=== PATIENT | female | born 1965 | race Caucasian/White ===

== ENCOUNTER → 2019-07-19 07:44 | Outpatient (CLI) | payer OTHER, SELFPAY ==
--- NOTE | 2019-07-19 07:50 | US_ITS ---
STUDY: SUPERFICIAL ULTRASOUND - UPPER LEFT ARM. REASON FOR EXAM: Female, 54 years old. Lump/pain or fluid collection in the upper left arm. TECHNIQUE: A superficial ultrasound was performed with real-time and static clark-scale imaging. COMPARISON: None. FINDINGS: In the region of clinical concern there is no evidence of free fluid, fluid collection or mass. There is normal distribution and echotexture of the superficial and deeper soft tissues. US/Ext Non Vasc Limited/Soft Tiss IMPRESSION: No distinct soft tissue mass, abscess or edema. Electronically Signed: Shalonda Jenkins MD at 1:22 EST , Service support ,
== END ==
PROVIDERS: Family Provider Student in an Organized Health Care Education/Training Program; PCP Student in an Organized Health Care Education/Training Program; Referring Provider Student in an Organized Health Care Education/Training Program; Visit Provider Student in an Organized Health Care Education/Training Program
DX: M79.622 Pain in left upper arm (principal); M67.922 Unspecified disorder of synovium and tendon, left upper arm; R20.2 Paresthesia of skin
CPT/HCPCS: 76882

== ENCOUNTER 2020-03-04 08:00 | Outpatient (RCR) | payer OTHER, SELFPAY ==
--- NOTE | 2019-11-02 08:11 | HP.PTEVAL ---
Patient's Visit Information MARCUS SHINE is a 54 year old F referred to Physical Therapy by Castro Chung DO with a diagnosis of L shoulder pain. Date of Evaluation: 11/02/19 Physical Therapist: Hector Tejeda PT, ATC - Visit Plan Frequency: 2-3x /Week Duration: 4-6 Weeks Plan: L shoulder strengthening (rot cuff), scap stab, UBE, and HEP - Subjective Findings: Pt reports she has had L shoulder pain for about one year. Pt reports her pain had an insidious onset in nature. Pt reports she is L hand dominant. Pt reports it hurts when she attempts to lift her arm over her head, and to reach across her body. 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 Pt reports sleep difficulty if she sleeps on her L side. Pt reports she had xrays of her neck as well which revealed no significant findings. No PMHx of L shoulder pain. 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 3/10 pain at rest, 9/10 pain at worst. (taking her shirts offf or reaching out in front of her) - Pain L shoulder Pain Intensity (Out of 10): 3 Pain Intensity Range: 9 - Objective Neuro: B UE sensation is WNL to light touch. B bicepital reflex= 2/3. Palpation: Pt is sore along the distribution of her L supraspinatus muscle and LHB tendon. ROM: R shoulder flex= 175, abd= 180, ER= 65, IR WNL; L shoulder flex= 90, abd= 55, ER= 0, moderate limitation. MMT: L shoulder is grossly 3-/5 and painful. R shoulder is 5/5 throughout. Special tests: Pos empty can test, pos HK impingement test - Goals Goal 1:: Decrease L shoulder pain x 50% to aid with sleep Goal Time Frame: 4-6 Weeks Goal 2:: Increase L shoulder strength x 1 grade to aid with IADL's Goal Time Frame: 4-6 Weeks Goal 3:: Increase L shoulder flex and abd ROM x 30 degrees to aid with IADL's Goal Time Frame: 4-6 Weeks Goal 4:: I with HEP Goal Time Frame: 4-6 Weeks - Rehabilitation Potential Physical Therapy Diagnosis: L shoulder pain, weakness, and limited ROM secondary to L rotator cuff syndrome Rehabilitation Potential: Good - Anticipated Interventions Patient/Client Instruction: Educate patient on: Condition, Plan of Care For the Purpose of:: To improve self management Therapeutic Exercise to Include: Strength training, Endurance training, Flexibilty training, Passive ROM, Active ROM, Scapular Strength/Stabilization For the Purpose of:: To decrease pain, To increase ROM, To improve muscle performance and motor function Cryotherapy (ice pack, ice massage): Yes For the Purpose of:: To decrease pain Thank you for the opportunity to evaluate your patient. For Medicare and Medicare HMO plans, please review the plan of care and approve it. It will need to be FAXED BACK to us at [phone] for Medicare purposes. For Medicare only, by signing this I certify the plan of care. Please let me know if there are questions or concerns regarding this plan of care. Physician Signature: Date:
--- NOTE | 2020-02-06 08:18 | HP.PTREVAL ---
Dr. Castro Chung, DO, It has been my pleasure to treat MARCUS SHINE over the last 6 visits for L shoulder pain. Please see the progress note below for an update on the physical therapy plan of care! Subjective: Pt has returned here today after 2 mos of staying at home secondary to COVID shutdown Objective/Function: L shoulder pain 0/10 currently, 4/10 at worst. L shoulderROM: flex= 135, abd= 120, ER= 10. L shoulder MMT: Grossly 4-/5 throughout. Pt is showing signs of improvement overall but demonstrates the need for skilled PT for ROM and strengthening Plan Plan: Focus on L shoulder PROM/mobs, and gradually incorporate rot cuff strengthening. Goals Goal 1:: Decrease L shoulder pain x 50% to aid with sleep Goal Time Frame: 4-6 Weeks Goal Progress: Progressing Goal 2:: Increase L shoulder strength x 1 grade to aid with IADL's Goal Time Frame: 4-6 Weeks Goal Progress: Progressing Goal 3:: Increase L shoulder flex and abd ROM x 30 degrees to aid with IADL's Goal Time Frame: 4-6 Weeks Goal Progress: Progressing Goal 4:: I with HEP Goal Time Frame: 4-6 Weeks Goal Progress: Goal Met Anticipated Interventions Patient/Client Instruction: Educate patient on: Condition, Plan of Care For the Purpose of:: To improve self management Therapeutic Exercise to Include: Strength training, Endurance training, Flexibilty training, Passive ROM, Active ROM, Scapular Strength/Stabilization For the Purpose of:: To decrease pain, To increase ROM, To improve muscle performance and motor function Cryotherapy (ice pack, ice massage): Yes For the Purpose of:: To decrease pain Please do not hesitate to contact me at [phone] by phone or if you have questions or concerns regarding this new plan of care! Sincerely, Hector Tejeda, PT, ATC
--- NOTE | 2020-03-04 08:30 | HP.PTDCSUM ---
It has been my pleasure to treat MARCUS SHINE referred by Dr. Castro Chung DO, with the diagnosis of L shoulder pain for a total of 12 visit(s). Discharge Date: Please see the following information for a summary of their discharge status. Subjective: My shoulder only hurts if i move it wrong L shoulder Pain Intensity (Out of 10): 0 % Improvement: 85 Objective/Function: L shoulder pain is 0/10 currently, 3/[address]. L shoulder ROM: flex= 145, abd= 140, ER= 15, IR minimally limited. L shoulder MMT: 4+/5 throughout. Pt is I with HEP. Rx goals achieved Goal 1:: Decrease L shoulder pain x 50% to aid with sleep Goal Progress: Goal Met Goal 2:: Increase L shoulder strength x 1 grade to aid with IADL's Goal Progress: Goal Met Goal 3:: Increase L shoulder flex and abd ROM x 30 degrees to aid with IADL's Goal Progress: Goal Met Goal 4:: I with HEP Goal Progress: Goal Met Plan: Discharge If there are questions or concerns regarding this patient's physical therapy, please feel free to call me at [phone]. Thank you for the referral of this patient. Sincerely, Hector Tejeda, PT, ATC
== END 2020-03-04 09:46 | disposition home or self-care (01) ==
LOC: PT 08:00
PROVIDERS: Family Provider Student in an Organized Health Care Education/Training Program; PCP Student in an Organized Health Care Education/Training Program; Referring Provider Student in an Organized Health Care Education/Training Program; Visit Provider Student in an Organized Health Care Education/Training Program
DX: M19.012 Primary osteoarthritis, left shoulder (principal); M54.2 Cervicalgia; M75.02 Adhesive capsulitis of left shoulder; M79.622 Pain in left upper arm; R20.2 Paresthesia of skin
CPT/HCPCS: 97110; 97140; 97161; 97164

== ENCOUNTER 2021-06-04 05:09 | Emergency (ER) | payer OTHER, SELFPAY ==
[2021-06-04] VITALS (11 sets, daily range): BP systolic 106–140; BP diastolic 70–91; PULSE 68–92; RESP 12–16; TEMP 35.8; O2SAT 97–100; BMI 27.0
--- NOTE | 2021-06-04 05:25 | EKG12_ITS ---
Test Reason : CP Blood Pressure : / mmHG Vent. Rate : 086 BPM Atrial Rate : 086 BPM P-R Int : 138 ms QRS Dur : 082 ms QT Int : 380 ms P-R-T Axes : 020 -14 -01 degrees QTc Int : 454 ms Normal sinus rhythm Nonspecific ST and T wave abnormality Abnormal ECG Confirmed by MAURICE HAWTHORNE, SHENG ([id number]), map editor JUAN DAVID SOOD ([id number]) on 06/08/2021 7:53:52 AM Referred By: SHANNAN Confirmed By:SHENG RICHARDS MD
--- NOTE | 2021-06-04 05:25 | RAD_ITS ---
STUDY: X-RAY CHEST REASON FOR EXAM: Female, 56 years old. Chest pain TECHNIQUE: Portable, upright, AP chest radiograph COMPARISON: None. FINDINGS: The lungs are clear and expanded. There is no demonstrated pleural abnormality. Normal size heart. Normal mediastinum and chanel. Normal visualized pulmonary arteries. Normal visualized aortic arch and descending thoracic aorta. Normal visualized thoracic spine. Normal visualized ribs, clavicles, and shoulders. There is no demonstrated abnormality of the visualized soft tissue structures of the upper abdomen. RAD/Chest 1 View (Portable) IMPRESSION: No acute abnormal cardiopulmonary finding. Electronically Signed: Broderick Alonso MD at 5:55 EDT Tel , Service support ,
--- NOTE | 2021-06-04 05:26 | ED.VIS.CHEST ---
HPI <Dr. Corby Moeller MD - Last Filed: 06/04/21 06:53> History of Present Illness Chief Complaint: Chest Pain Informant: patient Narrative Narrative: Patient presents with chest pain. Patient states that about 30 minutes ago she was awoken. She felt as though a band was wrapped around her chest. It just felt tight all the way around. She had some discomfort go down both arms. She felt just a little bit short of breath. She was a little bit nauseated but does not vomit. She had mild diaphoresis with this. She states she feels much better now but does still feel a little tightness on her chest but it is much less than originally. She has never had symptoms like this before. Her last travel was about 4 months ago where she flew to [place]. No other known risk factor for pulmonary embolus. No leg pain or swelling. Patient has never had high blood pressure, diabetes or been a smoker. Her father had heart disease but it was more when he was about 70. She did have an uncle that in his 40s of a heart attack. No cholesterol history. Past medical history: Trigeminal neuralgia Medication amitriptyline Allergy to penicillin and erythromycin Surgery: Cholecystectomy Non-smoker lives at home with family Family history of heart disease as above. PFSH <Dr. Corby Moeller MD - Last Filed: 06/04/21 06:53> [facility] Medical History GERD (gastroesophageal reflux disease) Home Medications amitriptyline 20 mg PO QHS 06/04/21 [History Last Taken Unknown] Allergy/AdvReac Type Severity Reaction Status Date / Time Penicillins Allergy Hives Verified 06/04/21 05:14 erythromycin base AdvReac Upset Verified 06/04/21 05:15 Stomach Surgical History History of cholecystectomy Social History Smoking Status: Never smoker ROS <Dr. Corby Moeller MD - Last Filed: 06/04/21 06:53> ROS ED Constitutional Constitutional ED: Denies chills or fever(s) Eyes Eyes: Denies blurry vision or change in vision ENT ENT ED: Denies rhinorrhea or sore throat Cardiovascular Cardiovascular: Reports chest pain; Denies palpitations or racing heartbeat Respiratory/Chest Respiratory/Chest: Reports dyspnea and other Details: When specifically asked, she does have some slight increase of the pain with a deep breath. ; Denies cough or dyspnea on exertion Gastrointestinal Gastrointestinal: Reports nausea; Denies abdominal pain or vomiting Genitourinary Genitourinary ED: Denies dysuria or hematuria Musculoskeletal Musculoskeletal: Denies neck pain Integumentary Denies rash Neurologic Neurologic: Denies headache(s), paresthesias or weakness Psychiatric Psychiatric: Denies anxiety or depression Endocrine Endocrinology: Denies polydipsia or polyuria Hematologic/Lymphatic Hematologic/Lymphatic: Denies easy bleeding or easy bruising Allergic/Immunologic Allergic/Immunologic ED: Denies urticaria EXAM <Dr. Corby Moeller MD - Last Filed: 06/04/21 06:53> Physical Exam Const Vital Signs: 06/04/21 05:11 06/04/21 05:15 06/04/21 05:18 Temperature 96.4 F L Temperature Source Oral Pulse Rate 92 Respiratory Rate 16 Respiratory Effort Normal Respiratory Pattern Normal Blood Pressure 140/79 H Blood Pressure Mean 99 Pulse Ox 100 Oxygen Delivery Method Room Air 06/04/21 05:35 06/04/21 05:38 06/04/21 05:57 Temperature Temperature Source Pulse Rate 80 80 Respiratory Rate Respiratory Effort Respiratory Pattern Blood Pressure 107/91 H 110/76 Blood Pressure Mean Pulse Ox Oxygen Delivery Method Room Air 06/04/21 08:16 06/04/21 09:11 06/04/21 11:02 Temperature Temperature Source Pulse Rate 77 80 80 Respiratory Rate 14 16 14 Respiratory Effort Respiratory Pattern Blood Pressure 106/70 110/70 122/80 H Blood Pressure Mean 82 83 94 Pulse Ox 97 98 100 Oxygen Delivery Method Room Air Room Air Room Air 06/04/21 11:23 06/04/21 11:33 06/04/21 11:47 Temperature Temperature Source Pulse Rate 68 74 68 Respiratory Rate 12 16 Respiratory Effort Respiratory Pattern Blood Pressure 132/91 H 132/80 H 122/79 H Blood Pressure Mean 104 93 Pulse Ox 100 97 Oxygen Delivery Method Room Air Room Air Positive well nourished and well developed Constitutional Narrative: Patient looks a bit concerned. She is not diaphoretic at this time. General Appearance ED: well developed; Negative for pallor HEENT Reports moist mucous membranes normocephalic and atraumatic Eyes General Eye ED: Negative for pale conjunctiva or scleral icterus Neck No no JVD Chest Wall inspection of chest normal and palpation of chest normal Resp normal respiratory effort and clear to auscultation bilaterally Resp Narrative: Patient states it does hurt a little bit more when she takes a deep breath but there is no cessation of inspiration with a deep breath. Effort and Inspection: Negative for respiratory distress Auscultation: Negative for rales, rhonchi or wheezes Cardio regular rate, regular rhythm and no murmurs Rate: other Other Details: Peripheral pulses x4 are equal and normal. GI normal to inspection, nondistended, normoactive bowel sounds, soft to palpation and non-tender Back/Spine no CVA tenderness Extremity normal to inspection General Extremety ED: Negative for edema, pulses abnormal or tenderness General Extremity: Negative for edema or pulses abnormal Neuro Sensorium / Orientation: awake and alert Psych mental status grossly normal Skin no rashes or lesions noted and no wounds Skin Narrative: No diaphoresis at this time. General Skin Exam: Negative for pallor <Dr. Mo Vo MD - Last Filed: 06/04/21 13:59> Physical Exam Const Vital Signs: 06/04/21 05:11 06/04/21 05:15 06/04/21 05:18 Temperature 96.4 F L Temperature Source Oral Pulse Rate 92 Respiratory Rate 16 Respiratory Effort Normal Respiratory Pattern Normal Blood Pressure 140/79 H Blood Pressure Mean 99 Pulse Ox 100 Oxygen Delivery Method Room Air 06/04/21 05:35 06/04/21 05:38 06/04/21 05:57 Temperature Temperature Source Pulse Rate 80 80 Respiratory Rate Respiratory Effort Respiratory Pattern Blood Pressure 107/91 H 110/76 Blood Pressure Mean Pulse Ox Oxygen Delivery Method Room Air 06/04/21 08:16 06/04/21 09:11 06/04/21 11:02 Temperature Temperature Source Pulse Rate 77 80 80 Respiratory Rate 14 16 14 Respiratory Effort Respiratory Pattern Blood Pressure 106/70 110/70 122/80 H Blood Pressure Mean 82 83 94 Pulse Ox 97 98 100 Oxygen Delivery Method Room Air Room Air Room Air 06/04/21 11:23 06/04/21 11:33 06/04/21 11:47 Temperature Temperature Source Pulse Rate 68 74 68 Respiratory Rate 12 16 Respiratory Effort Respiratory Pattern Blood Pressure 132/91 H 132/80 H 122/79 H Blood Pressure Mean 104 93 Pulse Ox 100 97 Oxygen Delivery Method Room Air Room Air <Dr. Corby Moeller MD - Last Filed: 06/04/21 06:53> Heart Score History: Highly Suspicious ECG: Nonspecific Repolarization Age: >45 - <65 years Risk Factors: No Risk Factors Troponin: </= Normal Limit Score: 4 MDM <Dr. Corby Moeller MD - Last Filed: 06/04/21 06:53> MDM MDM Narrative Medical decision making narrative: Patient CBC was normal. Electrolytes were normal other than potassium of 3.3 which was replaced. Troponin was negative. D-dimer was negative. I talked to the patient again. She still has a little bit of the tightness left. She now recalls that she also did drive to [place] for about a 4-1/2-hour trip 2 weeks ago. However, she is not hypoxic tachycardic or tachypneic and her D-dimer is negative. I discussed case with hospitalist. This patient does have a heart score of 4. She has a concerning story. He requested we try a GI cocktail and repeat the troponin. I have put in for those items. Patient states she tried Tums at home and it did not help. We are pending this repeat troponin at this time. My concern is that this patient is a very convincing story. She has mild family history although it officially does not increase her risk factor. Lab Data Attestation: I reviewed the patient's lab results. Labs: Laboratory Results - last 24 hr 06/04/21 06/04/21 06/04/21 05:19 05:19 05:36 WBC 6.9 RBC 4.32 Hgb 12.8 Hct 38.3 MCV 88.7 MCH 29.6 MCHC 33.4 RDW Std Deviation 39.7 RDW Coeff of Mishel 12.2 Plt Count 184 MPV 10.5 Immature Gran % (Auto) 0.300 Neut % (Auto) 44.4 L Lymph % (Auto) 42.2 H [place] % (Auto) 9.9 Eos % (Auto) 2.0 Baso % (Auto) 1.2 H Absolute Neuts (auto) 3.1 Absolute Lymphs (auto) 2.91 Nucleated RBC % 0 D-Dimer Quant (PE/DVT) <= 0.27 Sodium 143 Potassium 3.2 L Chloride 109 H Carbon Dioxide 27.0 Anion Gap 7 BUN 9 Creatinine 0.90 Estim Creat Clear Calc 59.55 Est GFR (MDRD) Af Amer 84 Est GFR (MDRD) Non-Af 69 BUN/Creatinine Ratio 10.1 Glucose 102 Calcium 8.7 Troponin I High Sens 5 06/04/21 07:30 WBC RBC Hgb Hct MCV MCH MCHC RDW Std Deviation RDW Coeff of Mishel Plt Count MPV Immature Gran % (Auto) Neut % (Auto) Lymph % (Auto) [place] % (Auto) Eos % (Auto) Baso % (Auto) Absolute Neuts (auto) Absolute Lymphs (auto) Nucleated RBC % D-Dimer Quant (PE/DVT) Sodium Potassium Chloride Carbon Dioxide Anion Gap BUN Creatinine Estim Creat Clear Calc Est GFR (MDRD) Af Amer Est GFR (MDRD) Non-Af BUN/Creatinine Ratio Glucose Calcium Troponin I High Sens 5 Radiography Diagnostic Testing: Radiology Impression Chest X-Ray 06/04/21 05:25 IMPRESSION: No acute abnormal cardiopulmonary finding. Electronically Signed: Broderick Alonso MD at 5:55 EDT Tel , Service support , Coronary Angiography CT 06/04/21 11:35 IMPRESSION: 1. Mixing artifact versus pulmonary embolism of the right middle lobe. Clinical correlation recommended. 2. No other incidental CT findings. N.B. : The above Results were Read Back by Niraj Ortiz MD (Brooks) to Mo Vo MD, and understanding confirmed on 06/04/2021 12:29:24 (ET). Electronically Signed: Niraj Ortiz MD (Brooks) at 12:31 EDT , Service support , ADDENDUM: 06/04/21 1238 IMPRESSION: 1. Mixing artifact versus pulmonary embolism of the right middle lobe. Clinical correlation recommended. 2. No other incidental CT findings. N.B. : The above Results were Read Back by Niraj Ortiz MD (Brooks) to Mo Vo MD, and understanding confirmed on 06/04/2021 12:29:24 (ET). Electronically Signed: Niraj Ortiz MD (Brooks) at 12:31 EDT , Service support , EKG Initial EKG: Comments: EKG done for chest pain read by me shows a normal sinus rhythm. No ectopy. Rate is 86. IA interval, QRS duration and QTc are normal. There are some diffuse nonspecific ST and T wave changes. No acute ST elevation. We looked and there is no prior available to compare to. <Dr. Mo Vo MD - Last Filed: 06/04/21 13:59> [facility] Narrative Medical decision making narrative: Patient was checked out to me. Her delta troponin returned at 0, both troponins came back at 5. I discussed with cardiology Dr. Concepcion. His recommendation was to get CT angiography of the coronaries. This was obtained, there was some delay because we had to rate control the patient to get her heart down below 60 or 70 with metoprolol, and she needed to get some nitroglycerin when she was in the CT. This was read by the radiologist and the steel pourer, CT angiography of the coronaries is normal with a calcium score of 0. The radiologist did call me and discussed this single filling defect in the right middle lobe that may be mixing artifact versus a pulmonary embolus. Given the fact that her symptoms are less consistent with pulmonary embolus and her D-dimer is negative and she is a low risk, I think the risks of anticoagulating her at this time outweigh the potential benefits as this is less likely to be a pulmonary embolus. The radiologist was in agreement. At this time I do not think she needs a stat VQ scan, but I think close outpatient follow-up is warranted. Esophageal disorders are in the differential diagnosis, but all the patient's testing here is normal. I discussed this with her, her symptoms are present but very mild at this time she is comfortable as are her vital signs which are normal, she can be discharged to follow-up. I did discuss with Dr. Shelley, who read her CTA, and she does not need a stress test in the near future. Lab Data Attestation: I reviewed the patient's lab results. Labs: Laboratory Results - last 24 hr 06/04/21 06/04/21 06/04/21 05:19 05:19 05:36 WBC 6.9 RBC 4.32 Hgb 12.8 Hct 38.3 MCV 88.7 MCH 29.6 MCHC 33.4 RDW Std Deviation 39.7 RDW Coeff of Mishel 12.2 Plt Count 184 MPV 10.5 Immature Gran % (Auto) 0.300 Neut % (Auto) 44.4 L Lymph % (Auto) 42.2 H [place] % (Auto) 9.9 Eos % (Auto) 2.0 Baso % (Auto) 1.2 H Absolute Neuts (auto) 3.1 Absolute Lymphs (auto) 2.91 Nucleated RBC % 0 D-Dimer Quant (PE/DVT) <= 0.27 Sodium 143 Potassium 3.2 L Chloride 109 H Carbon Dioxide 27.0 Anion Gap 7 BUN 9 Creatinine 0.90 Estim Creat Clear Calc 59.55 Est GFR (MDRD) Af Amer 84 Est GFR (MDRD) Non-Af 69 BUN/Creatinine Ratio 10.1 Glucose 102 Calcium 8.7 Troponin I High Sens 5 06/04/21 07:30 WBC RBC Hgb Hct MCV MCH MCHC RDW Std Deviation RDW Coeff of Mishel Plt Count MPV Immature Gran % (Auto) Neut % (Auto) Lymph % (Auto) [place] % (Auto) Eos % (Auto) Baso % (Auto) Absolute Neuts (auto) Absolute Lymphs (auto) Nucleated RBC % D-Dimer Quant (PE/DVT) Sodium Potassium Chloride Carbon Dioxide Anion Gap BUN Creatinine Estim Creat Clear Calc Est GFR (MDRD) Af Amer Est GFR (MDRD) Non-Af BUN/Creatinine Ratio Glucose Calcium Troponin I High Sens 5 Radiography Diagnostic Testing: Radiology Impression Chest X-Ray 06/04/21 05:25 IMPRESSION: No acute abnormal cardiopulmonary finding. Electronically Signed: Broderick Alonso MD at 5:55 EDT Tel , Service support , Coronary Angiography CT 06/04/21 11:35 IMPRESSION: 1. Mixing artifact versus pulmonary embolism of the right middle lobe. Clinical correlation recommended. 2. No other incidental CT findings. N.B. : The above Results were Read Back by Niraj Ortiz MD (Brooks) to Mo Vo MD, and understanding confirmed on 06/04/2021 12:29:24 (ET). Electronically Signed: Niraj Ortiz MD (Brooks) at 12:31 EDT , Service support , ADDENDUM: 06/04/21 1238 IMPRESSION: 1. Mixing artifact versus pulmonary embolism of the right middle lobe. Clinical correlation recommended. 2. No other incidental CT findings. N.B. : The above Results were Read Back by Niraj Ortiz MD (Brooks) to Mo Vo MD, and understanding confirmed on 06/04/2021 12:29:24 (ET). Electronically Signed: Niraj Ortiz MD (Brooks) at 12:31 EDT , Service support , EKG Follow-up EKG: Attestation: I personally reviewed and interpreted this EKG as follows: Interpretation: Sinus Rhythm and No Acute Injury Pattern Comments: Initial EKG showed nonspecific T wave abnormalities anteroseptally and some inferiorly, repeat EKG shows they are resolved. Discharge Plan Triage Chief Complaint: Chest Pain ED Provider: Corby Moeller Dx/Rx/DC Orders Clinical Impression: Chest pain Instructions: ED Chest Pain, Noncardiac Prescriptions: No Action amitriptyline 10 mg tablet 20 mg PO QHS RF: 0 Primary Care Provider: Castro Chung Referrals: Castro Chung DO [Primary Care Provider] - 5-7 Days Disposition Disposition: Home, Self Care
[2021-06-04] MEDS: Nitroglycerin SL (ED/IMG/CATH) 0.4 MG TABLET SL ×3 (05:35→11:33)
[2021-06-04] MEDS: Aspirin 81 MG TAB.CHEW 324 MG PO (05:36)
[2021-06-04 05:49] LABS: Absolute Lymphocyte Count 2.91 X10^3/uL (0.83-4.51); Absolute Neutrophil Count 3.1 X10^3/uL (2.0-7.7); Basophil# 0.08 X10^3/uL; Basophil% 1.2 % (0-1); Eosinophil# 0.14 X10^3/uL; Hematocrit 38.3 % (37-47); Hemoglobin 12.8 g/dL (12.0-15.0); Lymphocyte # 2.91 X10^3/ul (0.83-4.51); Lymphocyte % 42.2 % (19-41); Mean Corp Hgb Conc 33.4 g/dL (32-36); Mean Corpuscular Hgb 29.6 pg (27.0-32.0); Mean Corpuscular Volume 88.7 fL (81-99); Mean Platelet Vol. 10.5 fl (6.2-12.0); Monocyte# 0.68 X10^3/uL; Monocyte% 9.9 % (0-10); NRBC Flagged by Analyzer 0 % (0-5); Neutrophil # 3.06 X10^3/uL (2.7-7.7); Neutrophil % 44.4 % (47-70); Platelet Count 184 K/mm3 (150-450); RBC Distribution Width CV 12.2 % (11.6-14.6); RBC Distribution Width SD 39.7 fl (35.1-43.9); Red Blood Count 4.32 M/mm3 (4.2-5.4); White Blood Count 6.9 K/mm3 (4.4-11.0)
--- NOTE | 2021-06-04 05:56 | EKG12_ITS ---
Test Reason : CP Blood Pressure : / mmHG Vent. Rate : 073 BPM Atrial Rate : 073 BPM P-R Int : 170 ms QRS Dur : 086 ms QT Int : 406 ms P-R-T Axes : 022 000 008 degrees QTc Int : 447 ms Normal sinus rhythm Normal ECG Confirmed by MAURICE HAWTHORNE, SHENG ([id number]), general expeditor JUAN DAVID SOOD ([id number]) on 06/08/2021 7:54:12 AM Referred By: SHANNAN Confirmed By:SHENG RICHARDS MD
[2021-06-04 06:04] LABS: Anion Gap 7 (5-15); BUN 9 mg/dL (7-18); BUN/Creat Ratio 10.1 RATIO (10-20); Calcium,Total 8.7 mg/dL (8.5-10.1); Chloride 109 mmol/L (98-107); EST Glomerular Filtration Rate 69 mL/min (>60); Est Glom Filt Rate - Afr Amer 84 mL/min (>60); Estimated Creatinine Clearance 59.55 ml/min; Glucose 102 mg/dL (74-106); Potassium 3.2 mmol/L (3.5-5.1); Sodium Level 143 mmol/L (136-145); Troponin-I HS 5 pg/mL (3.0-54.0)
[2021-06-04 06:08] LABS: D-Dimer Quantitative (DVT/PE) <= 0.27 FEU/ug/m (0.27-0.49)
[2021-06-04] MEDS: Potassium Chloride Oral Tablet 20 MEQ PO (06:53)
[2021-06-04] MEDS: Mag Hydrox/Al Hydrox/Simeth 30 ML UDC PO (06:54)
--- NOTE | 2021-06-04 07:25 | EKG12_ITS ---
Test Reason : REPEAT Blood Pressure : / mmHG Vent. Rate : 069 BPM Atrial Rate : 069 BPM P-R Int : 156 ms QRS Dur : 086 ms QT Int : 396 ms P-R-T Axes : 052 -12 014 degrees QTc Int : 424 ms Normal sinus rhythm Normal ECG Confirmed by MAURICE HAWTHORNE, SHENG ([id number]), dictionary editor JUAN DAVID SOOD ([id number]) on 06/08/2021 7:54:32 AM Referred By: Confirmed By:SHENG RICHARDS MD
[2021-06-04 07:52] LABS: Troponin-I HS 5 pg/mL (3.0-54.0)
--- NOTE | 2021-06-04 11:10 | ED.RN ---
Intervention radiology at bedside to take pt. to CT, and will assume care at this time.
--- NOTE | 2021-06-04 11:15 | NURSING ---
JOVANA Mahan in with pt to explain Cardiac CTA with Calcium Scoring Study. Pt understands reasoning for metoprolol and nitroglycerin to be given for exam. Pt assisted to bathroom prior to being medicated.
[2021-06-04] MEDS: Metoprolol Tartrate 5 MG/5 ML Vial IV (11:19)
--- NOTE | 2021-06-04 11:35 | CT_ITS ---
STUDY: CARDIAC CALCIUM SCORING - CT CHEST (OVERREAD ONLY FOR NON CARDIAC STRUCTURES) REASON FOR EXAM: Female, 56 years old. CHEST PAIN RADIATION DOSAGE (If Supplied By Facility): CTDIvol = ( ) mGy, DLP = ( ) mGycm TECHNIQUE: Axial non-enhanced images were acquired through the heart for the sole purpose of measuring coronary artery calcium. Individualized dose optimization techniques were used for this CT. COMPARISON: None. FINDINGS: Calcium scoring provided by cardiology service. Visualized lungs are unremarkable without airspace consolidation, mass or obvious effusion. No pericardial thickening. Advise osseous structures are unremarkable. IMPRESSION: No incidental radiographic findings. Calcium scoring reported by another clinical service. N.B. : The above Results were Read Back by Niraj Ortiz MD ([facility]) to Mo Vo MD, and understanding confirmed on 06/04/2021 12:29:24 (ET). Electronically Signed: Niraj Ortiz MD ([facility]) at 12:27 EDT , Service support , EXAM: CT CHEST WITH INTRAVENOUS CONTRAST CLINICAL INDICATION: CHEST PAIN TECHNIQUE: Helically acquired images were obtained of the chest with intravenous contrast. This CT exam was performed using one or more of the following dose reduction techniques: automated exposure control, adjustment of the mA and/or kV according to patient size, and/or use of iterative reconstruction technique. This report was created using [employer] report generation technology. Dedicated CT coronary artery performed with following report for Overread purposes only. CTA coronary will be interpreted by cardiology service. CONTRAST: IV- 57 [address] COMPARISON: None. FINDINGS: LUNGS AND PLEURAL SPACES: Unremarkable as visualized. No mass. No consolidation or edema. No pleural effusion or thickening. No pneumothorax. HEART: No pericardial effusion demonstrated. MEDIASTINUM: Unremarkable as visualized. No mediastinal or hilar adenopathy. Esophagus is unremarkable. No hiatal hernia. BONES/JOINTS: Unremarkable as visualized. No suspicious lytic or blastic abnormality. VASCULATURE: On image 4 of series 6, there is filling defect in the right middle lobe that could represent mixing artifact versus embolism; study is not specifically timed for pulmonary artery assessment. CT/Limited Chest CT w/CCTA IMPRESSION: 1. Mixing artifact versus pulmonary embolism of the right middle lobe. Clinical correlation recommended. 2. No other incidental CT findings. N.B. : The above Results were Read Back by Niraj Ortiz MD ([facility]) to Mo Vo MD, and understanding confirmed on 06/04/2021 12:29:24 (ET). Electronically Signed: Niraj Ortiz MD ([facility]) at 12:31 EDT , Service support ,
--- NOTE | 2021-06-04 11:45 | ED.RN ---
Pt. returned from radiology. Pt. aware of results pending and may take awhile. Pt. is requesting food. Will follow up with ED doctor.
--- NOTE | 2021-06-04 17:15 | CCTA.WCONT ---
CCTA w/Cont Coronary Arteries LEFT MAIN CORONARY ARTERY: [Normal] LEFT ANTERIOR DESCENDING CORONARY ARTERY: [This arises from the left main coronary artery and courses towards the apex of the ventricle with no significant stenosis noted.] LEFT CIRCUMFLEX CORONARY ARTERY: [There is a smooth moderate stenosis in the proximal circumflex artery likely secondary to artifact.] RIGHT CORONARY ARTERY: [Dominant right coronary artery arising from the right coronary cusp with no significant stenosis noted.] THORACIC AORTA: [] PULMONARY ARTERY: [] LEFT ATRIUM/APPENDAGE: [] MITRAL VALVE: [] AORTIC VALVE: [] LEFT VENTRICLE: [] CORONARY CALCIUM SCORE: High-resolution computed tomographic imaging of the chest was performed on 06/04/2021 with particular attention paid to the coronary arteries. Images from the examination were analyzed for the presence and extent of coronary artery calcification. Left main score 0 Left anterior descending artery score 0 Left circumflex artery score 0 Right coronary artery score 0 Total Agatston score 0. [In conclusion the above tests suggest no obstructive high-grade coronary artery disease noted and a calcium score of 0. This is a low risk computer tomographic coronary angiogram with calcium score.]
== END 2021-06-04 14:06 | disposition home or self-care (01) ==
PROVIDERS: Emergency Provider Emergency Medicine; PCP Student in an Organized Health Care Education/Training Program
DX: R07.9 Chest pain, unspecified (principal); R06.02 Shortness of breath; R11.0 Nausea; Z79.899 Other long term (current) drug therapy
CPT/HCPCS: 71045; 75571; 75574; 76380; 80048; 84484; 85025; 85379; 93005; 96374; 99285; Q9967